=== PATIENT | male | born 1960 | race African-American/Black ===

== ENCOUNTER 2018-06-25 10:11 | Outpatient (CLI) | payer MEDICARE ==
--- NOTE | 2018-06-25 13:56 | RAD ---
LEFT WRIST THREE VIEWS: Date: 06-25-18 FINDINGS: There may be a little soft tissue swelling dorsally, but no acute bony changes were detected. The ada viviane pole of the scaphoid is being somewhat flattened which would be a long standing finding, not an a cute one. I see no bony erosions. There may arthritic changes in the first carpal metacarpal joint. N o fractures were seen. IMPRESSION: Chronic changes but no acute finding. POS: HOME
== END 2018-06-25 10:12 | disposition home or self-care (01) ==
LOC: BURRAD 10:11
PROVIDERS: ATTEND Family Medicine
DX: M10.9 Gout, unspecified (principal)

== ENCOUNTER 2019-11-17 03:36 | Emergency (ER) | payer MEDICARE ==
[2019-11-17] MEDS ORDERED: Ketorolac Tromethamine 60 MG/2 ML VIAL ONE (04:14)
[2019-11-17] MEDS ORDERED: Acetaminophen/Codeine 30-300mg Tablet ONE (04:14)
== END 2019-11-17 04:20 | disposition home or self-care (01) ==
LOC: BURERS 03:36
DX: M54.12 Radiculopathy, cervical region (principal); M25.511 Pain in right shoulder; Z79.84 Long term (current) use of oral hypoglycemic drugs; Z79.899 Other long term (current) drug therapy; Z79.82 Long term (current) use of aspirin
CPT/HCPCS: 96372; J1885

== ENCOUNTER 2019-11-21 12:21 | Outpatient (CLI) | payer MEDICARE ==
--- NOTE | 2019-11-21 19:48 | RAD ---
RIGHT SHOULDER TWO VIEWS: 11/21/2019 FINDINGS: No fracture, dislocation or AC joint widening is seen. There is some bony spurring in the AC joint, i ncluding some spurring at the inferior aspect that could potentially impact passing rotator cuff tend ons. There is a little irregularity of the greater tubercle with possibly a calcification near it, chris ggesting the possibility of calcific tendinitis. No bony destructive lesions are seen. IMPRESSION: Minor arthritic changes in the acromioclavicular joint. Possible mild calcific tendinitis. POS: HOME
--- NOTE | 2019-11-21 19:50 | RAD ---
LEFT SHOULDER TWO VIEWS: 11/21/2019 COMPARISON: Right shoulder. FINDINGS: Spurring is seen in the AC joint. A fairly large bony spur projects inferiorly and could potentially impinge upon the passing supraspinatus tendon. There is no fracture or dislocation. There is a little irregularity of the superior part of the glenoid fossa, which could be from old trauma. The bones th emselves all appear intact. IMPRESSION: Prominent bony spurring involving the acromioclavicular joint. POS: HOME
--- NOTE | 2019-11-21 19:59 | RAD ---
CERVICAL SPINE FOUR VIEWS: 11/21/2019 FINDINGS: No fracture or significant disk space narrowing is seen. The oblique views are incompletely rotated, so it is difficult to talk confidently about the neural foramina. [id number] there is some suspic ion of osteophyte encroachment at C5-C6 on the left and to a lesser extent at C4-C5 and C5-C6 on the right. Given cervical radicular symptoms, an elective MRI could be helpful. Overall, the level of deg enerative change is not excessive. The C1 to dens distance is normal and the soft tissues are normal in thickness. IMPRESSION: Some mild degenerative changes as noted. There may be neural foraminal encroachment, particularly on the left at C5-C6. If this fits the patients symptoms then an elective MRI to further investigate thi s would be in order. POS: HOME
[2019-11-21 21:17] LABS: Eosinophils 1 % (0-10); Hemoglobin 13.2 g/dL (14.0-18.0); Lymphocytes 22 % (21-51); MDiff Complete? YES; Mean Corpuscular HGB CONC 31.7 g/dL (32.0-36.0); Mean Corpuscular Hemoglobin 27.7 pg (27.0-31.0); Mean Corpuscular Volume 87.3 fL (78.0-98.0); Mean Platelet Volume 7.7 fL (7.4-10.4); Monocytes 6 % (0-10); Neutrophil 71 % (42-75); Platelet Count 530 thou/uL (130-400); Platelet Morphology Comment Appears Increased; RBC Distribution Width 14.9 % (11.5-14.5); Red Blood Cell (RBC) Count 4.75 mill/uL (4.70-6.10)
== END 2019-11-21 12:22 | disposition home or self-care (01) ==
LOC: BURRAD 12:21
PROVIDERS: ATTEND Family Medicine
DX: M47.22 Other spondylosis with radiculopathy, cervical region (principal); M25.511 Pain in right shoulder; M25.512 Pain in left shoulder; M19.011 Primary osteoarthritis, right shoulder; M77.9 Enthesopathy, unspecified
CPT/HCPCS: 72050; 85025; 85652; 86140

== ENCOUNTER 2020-11-12 11:43 | Outpatient (CLI) | payer MEDICARE ==
--- NOTE | 2020-11-12 19:32 | RAD ---
LEFT FOOT THREE VIEWS: Date: 11-12-2020 FINDINGS: There is narrowing of the first MTP joint, along with some bony spurring here. There is slight irregu larity of the articular surface of the metatarsal head. Soft tissue swelling is present medial to thi s joint. No gross __No tophi or erosions were seen. The other bones and joints were unremarkable. A c alcaneal spur was noted. IMPRESSION: Arthritic changes and swelling involving the first MTP joint. POS: HOME
== END 2020-11-12 11:44 | disposition home or self-care (01) ==
LOC: BURRAD 11:43
PROVIDERS: ATTEND Registered Nurse Community Health
DX: M1A.0790 Idiopathic chronic gout, unspecified ankle and foot, without tophus (tophi) (principal); M19.072 Primary osteoarthritis, left ankle and foot; M79.89 Other specified soft tissue disorders